=== PATIENT | female | born 1955 | race Hispanic/Latino ===

== ENCOUNTER → 2019-09-14 | Outpatient (CLI) | payer BC | END | disposition home or self-care (01) | LOC: RAH 10:54 | PROVIDERS: ATTEND Internal Medicine | DX: S82.141A Displaced bicondylar fracture of right tibia, initial encounter for closed fracture (principal); S80.01XA Contusion of right knee, initial encounter; M17.11 Unilateral primary osteoarthritis, right knee; X58.XXXA Exposure to other specified factors, initial encounter; Y93.89 Activity, other specified; Y92.89 Other specified places as the place of occurrence of the external cause; Y99.8 Other external cause status | CPT/HCPCS: 73721 ==

== ENCOUNTER 2022-03-05 04:07 | Emergency (ER) | payer BC ==
[~2022-03-05] VITALS: Ht 154.9 cm; Wt 65.3 kg
[2022-03-05 04:52] LABS: BASOPHILS % (AUTO) 0.3 % (0.0-5.0); EOSINOPHILS % (AUTO) 1.6 % (0.0-8.0); HEMATOCRIT 40.2 % (36-48); LYMPHOCYTES % (AUTO) 8.2 % (21.0-51.0); MEAN CORPUSCULAR HEMOGLOBIN 29.9 pg (27.0-33.0); MEAN CORPUSCULAR HGB CONC 33.1 g/dL (32.0-36.0); MEAN CORPUSCULAR VOLUME 90.3 fL (79-99); MONOCYTES % (AUTO) 3.1 % (3.0-13.0); NEUTROPHILS % (AUTO) 86.2 % (40.0-77.0); PLATELET COUNT (AUTO) 175 K/uL (130-400); RED BLOOD CELL COUNT(AUTO) 4.45 MIL/uL (4.00-5.50); RED CELL DISTRIBUTION WIDTH 13.4 % (11.0-15.5); WHITE BLOOD COUNT (AUTO) 6.8 K/uL (4.8-10.8)
[2022-03-05 05:02] LABS: APPEARANCE,URINE Clear (CLEAR); BILIRUBIN,URINE Negative (NEGATIVE); COLOR,URINE Yellow (YELLOW); CREATININE 0.7 mg/dL (0.5-1.5); GLUCOSE, URINE (UA) Negative (NEGATIVE); KETONES,URINE Negative (NEGATIVE); LEUKOCYTE ESTERASE ,URINE Moderate (NEGATIVE); NITRATE,URINE Negative (NEGATIVE); OCCULT BLOOD,URINE Negative (NEGATIVE); POTASSIUM 3.8 mmol/L (3.5-5.1); PROTEIN,URINE Negative (NEGATIVE); UROBILINOGEN,URINE 0.2 mg/dL (0.2-1.0)
[2022-03-05 05:06] LABS: ALBUMIN 3.5 g/dL (3.5-5.0); BILIRUBIN,TOTAL 0.8 mg/dL (0.2-1.0); TOTAL PROTEIN, SERUM 6.6 g/dL (6.0-8.3)
[2022-03-05 05:19] LABS: RBC,URINE 0-1 /HPF (0-1); WBC,URINE 0-1 /HPF (0-1)
[2022-03-05 05:20] LABS: BACTERIA,URINE Rare /HPF (None Seen)
[2022-03-05] MEDS ORDERED: KETOROLAC 15MG/ML VIAL (15MG/ML) IV ONE (07:30)
[2022-03-05] MEDS ORDERED: LEVOFLOXACIN 500 MG TABLET PO SCH (07:30)
[2022-03-05] MEDS ORDERED: HYDROCODONE/ACETAMINOPHEN 10/325 MG TAB PO ONE (07:30)
[2022-03-05] MEDS ORDERED: LEVO250T43 PO (08:36)
[2022-03-05] MEDS ORDERED: DICL50TA9 PO (08:36)
[2022-03-05 08:52] VITALS: BP 133/70
== END 2022-03-05 07:58 | disposition home or self-care (01) ==
LOC: EDH 04:07
DX: N39.0 Urinary tract infection, site not specified (principal); R50.9 Fever, unspecified; E11.9 Type 2 diabetes mellitus without complications; E78.00 Pure hypercholesterolemia, unspecified; I10 Essential (primary) hypertension; E03.9 Hypothyroidism, unspecified
CPT/HCPCS: 36415; 74176; 80053; 81001; 83605; 85025; 87040 ×2; 87088; 96374; 99284; J1885

== ENCOUNTER 2023-02-21 03:49 | Emergency (ER) | payer MEDICARE, BC ==
[~2023-02-21] VITALS: Ht 154.9 cm; Wt 61.2 kg
[~2023-02-21 03:49] MED LIST: DICL50TA9 PO; LEVO250T75 PO
[2023-02-21 04:24] LABS: BASOPHILS % (AUTO) 0.3 % (0.0-5.0); EOSINOPHILS % (AUTO) 2.5 % (0.0-8.0); HEMATOCRIT 41.4 % (36-48); LYMPHOCYTES % (AUTO) 8.8 % (21.0-51.0); MEAN CORPUSCULAR HEMOGLOBIN 30.4 pg (27.0-33.0); MEAN CORPUSCULAR HGB CONC 33.6 g/dL (32.0-36.0); MEAN CORPUSCULAR VOLUME 90.6 fL (79-99); MONOCYTES % (AUTO) 4.6 % (3.0-13.0); NEUTROPHILS % (AUTO) 83.3 % (40.0-77.0); PLATELET COUNT (AUTO) 180 K/uL (130-400); RED BLOOD CELL COUNT(AUTO) 4.57 MIL/uL (4.00-5.50); RED CELL DISTRIBUTION WIDTH 13.6 % (11.0-15.5); WHITE BLOOD COUNT (AUTO) 6.5 K/uL (4.8-10.8)
[2023-02-21] MEDS ORDERED: 0.9%NACL 1000ML 1,000 ML IV ONE (04:30)
[2023-02-21] MEDS ORDERED: ONDANSETRON 4MG INJ IVP ONE (04:30)
[2023-02-21 04:39] LABS: CREATININE 0.8 mg/dL (0.5-1.5); POTASSIUM 3.8 mmol/L (3.5-5.1)
[2023-02-21 04:43] LABS: ALBUMIN 3.9 g/dL (3.5-5.0); TOTAL PROTEIN, SERUM 6.8 g/dL (6.0-8.3)
[2023-02-21] MEDS ORDERED: METOCLOPRAMIDE 10 MG/2 ML VIAL ONE (04:45)
[2023-02-21] MEDS ORDERED: METOCLOPRAMIDE 10 MG TABLET PO ONE (05:00)
[2023-02-21] MEDS ORDERED: DiphenhydrAMINE HCL 50 MG/ML VIAL IV ONE (05:00)
[2023-02-21] MEDS ORDERED: METOCLOPRAMIDE 10 MG/2 ML VIAL IVP ONE (05:00)
[2023-02-21 05:16] VITALS: BP 166/83
[2023-02-21] MEDS ORDERED: IBUP-1493 PO (05:48)
== END 2023-02-21 05:59 | disposition home or self-care (01) ==
LOC: EDH 03:49
DX: G43.909 Migraine, unspecified, not intractable, without status migrainosus (principal); I10 Essential (primary) hypertension; E03.9 Hypothyroidism, unspecified; E11.9 Type 2 diabetes mellitus without complications; E78.00 Pure hypercholesterolemia, unspecified; Z90.49 Acquired absence of other specified parts of digestive tract; Z98.890 Other specified postprocedural states
CPT/HCPCS: 99284; 96374; 96375; 96361; 80053; 83690; 85025; 36415; J1200; J7030; J2405; J2765

== ENCOUNTER 2024-09-22 17:25 | Emergency (ER) | payer BC, MEDICARE, OTHER ==
[~2024-09-22] VITALS: Ht 172.7 cm; Wt 62.6 kg
[~2024-09-22 17:25] MED LIST changes: +IBUP-1493 PO
--- NOTE | 2024-09-22 17:39 | ERN ---
ED Note History of Present Illness Stated Complaint: FEVER Chief Complaint: Fever Time Seen by MD: 17:29 Time Seen by Midlevel: 17:33 Dictation: 69-year-old female with history of hypertension, diabetes, cholesterol coming in complaining of a headache, lower back pain, and suprapubic pain , cough, congestion for the last three days. States her granddaughter was diagnosed with the flu yesterday. Patient states she has been having fevers but denies any vomiting or diarrhea. Patient states when she gets like this he usually has a urinary tract infection. No other complaints at this time. Allergies: Coded Allergies: No Known Allergies (Unverified Allergy, Unknown, 07/21/19) Home Meds Active Scripts Ibuprofen (Motrin/Advil) 800 Mg Tab, 800 MG PO TID, #30 TAB Prov:RON GRAVES MD 02/21/23 Diclofenac Sodium (Diclofenac Sodium) 50 Mg Tablet.dr, 50 MG PO TIDP PRN for Pain, #20 TAB 0 Refills Prov:GORAN HOLDER MD 03/05/22 Levofloxacin (Levofloxacin) 250 Mg Tablet, 250 MG PO DAILY for 5 Days, #5 TAB 0 Refills Prov:GORAN HOLDER MD 03/05/22 Past Medical History Past Medical History: Diabetes-Type II, High Cholesterol, Hypertension, Hypothyroid Surgical History: Cholecystectomy Surgical History Other: KIDNEY STONES, COLONOSCOPY Family History: Negative Social History: Negative, Other Review of System Dictation Constitutional: Complaining of generalized body aches and fever Eyes: Negative for injury, pain,redness, and discharge ENT: Negative for injury,pain or swelling Cardiovascular: Negative for chest pain, palpitations, and edema Respiratory: Negative for shortness of breath, cough, and wheezing, Abdomen/GI: Negative for abdominal pain, nausea, vomiting, diarrhea, and constipation Back: Negative for injury and pain : Negative for injury, bleeding and discharge MS/Extremity: Negative for injury and deformity Skin: Negative for rash, and discoloration Neuro: Positive for headache, no weakness, no numbness, no tingling, and no seizure Psych: Negative for suicide ideation, homicidal ideation, and hallucinations Review of Systems: was completed Initial Vital Sign VS Vital Signs Date Time Temp Pulse Resp B/P (MAP) Pulse Ox O2 Delivery O2 Flow Rate FiO2 09/22/24 17:26 101.8 107 18 173/82 98 11/28/24 17:47 Room Air* 0 21 Physical Exam Dictation General: awake, alert, NAD Head/Face: Normocephalic, atraumatic Eyes: PERRL, EOMI, vision at baseline ENT: oral cavity clear, TMs clear, no signs of infection Neck: Trachea midline, supple, no nuchal rigidity Cardiovascular: RRR, normal S1/S2, No MRGs, no JVD Respiratory: CTAB, no respiratory distress, No rales or wheezes Abdomen: Soft, non-tender, non-distended, normal bowel sounds, no guarding or rebound. Skin: Warm, dry, normal turgor, no rash MS/Extremity: Pulses equal, no cyanosis, neurovascular intact, FROM Neuro: COAx4, GCS 15, strength 5/5, CN 2-12 intact, normal cerebellar exam, normal gait, Psych: Normal behavior, mood, and affect normal Results (Laboratory/Radiology) Laboratory/Radiology Laboratory Tests Test 09/22/24 17:37 09/22/24 17:45 09/22/24 17:54 Urine Color LIGHT-YELLOW (YELLOW) Urine Appearance CLEAR (CLEAR) Urine pH 7.0 (5.0-8.0) Urine Specific [place] 1.016 (1.001-1.031) Urine Protein NEGATIVE mg/dL (NEGATIVE) Urine Glucose (UA) 500 mg/dL (NEGATIVE) H Urine Ketones 5 mg/dL (NEGATIVE) H Urine Occult Blood NEGATIVE (NEGATIVE) Urine Nitrate NEGATIVE (NEGATIVE) Urine Bilirubin NEGATIVE mg/dL (NEGATIVE) Urine Urobilinogen 0.2 mg/dL (0.2-1.0) Urine Leukocyte Esterase 500 Elina/uL (NEGATIVE) H Urine RBC 2-5 /HPF (0-1) H Urine WBC 11-25 /HPF (0-1) H Urine Squamous Epithelial Cells RARE /HPF (0-2) Urine Bacteria None /HPF (None Seen) White Blood Count 4.4 K/uL (4.8-10.8) L Red Blood Count 4.51 MIL/uL (4.00-5.50) Hemoglobin 13.3 g/dL (12.0-16.0) Hematocrit 41.9 % (36-48) Mean Corpuscular Volume 92.9 fL (79-99) Mean Corpuscular Hemoglobin 29.5 pg (27.0-33.0) Mean Corpuscular Hemoglobin Concent 31.7 g/dL (32.0-36.0) L Red Cell Distribution Width 13.2 % (11.0-15.5) Platelet Count 169 K/uL (130-400) Mean Platelet Volume 10.6 fL (7.5-10.5) H Immature Granulocyte % (Auto) 0.5 % (0-1) Neutrophils (%) (Auto) 65.9 % (40.0-77.0) Lymphocytes (%) (Auto) 18.5 % (21.0-51.0) L Monocytes (%) (Auto) 11.2 % (3.0-13.0) Eosinophils (%) (Auto) 3.2 % (0.0-8.0) Basophils (%) (Auto) 0.7 % (0.0-5.0) Neutrophils # (Auto) 2.9 K/uL (1.8-7.7) Lymphocytes # (Auto) 0.8 K/uL (1.0-4.8) L Monocytes # (Auto) 0.5 K/uL (0.1-1.0) Eosinophils # (Auto) 0.14 K/uL (0.00-0.70) Basophils # (Auto) 0.03 K/uL (0.00-0.20) Absolute Immature Granulocyte (auto 0.02 K/uL (0-1) Nucleated Red Blood Cells 0.0 % (0.0-0.19) Sodium Level 137 mmol/L (136-145) Potassium Level 3.8 mmol/L (3.5-5.1) Chloride Level 101 mmol/L (101-111) Carbon Dioxide Level 30 mmol/L (21-32) Blood Urea Nitrogen 19 mg/dL (7-18) H Creatinine 0.9 mg/dL (0.5-1.0) Glomerular Filtration Rate Calc 70 mL/min (>90) Random Glucose 206 mg/dL (70-105) H Lactic Acid Level 2.3 mmol/L (0.8-2.5) Total Calcium 8.9 mg/dL (8.5-10.1) Total Creatine Kinase 53 U/L (21-232) Troponin I High Sensitivity 4 ng/L (4-50) Influenza Type A Antigen Positive For Type A Influenza Type B Antigen Negative For Type B SARS-CoV-2, RNA, NAAT NEGATIVE SARS CoV-2 Group A Streptococcus Rapid negative (NEGATIVE) Labs Reviewed?: Yes ED Course ED Course Orders Procedure Category Date Status Time Cbc With Differential LAB 09/22/24 Complete 17:33 Blood Cult SYLWIA 09/22/24 Logged 17:33 Urinalysis Profile LAB 09/22/24 Complete 17:33 Culture Urine SYLWIA 09/22/24 In Process 17:33 0.9%Nacl 1000ml (Ns PHA 09/22/24 In Process 1000ml) 18:00 Creatine Kinase, Total LAB 09/22/24 Complete 17:33 Troponin I High LAB 09/22/24 Complete Sensitivity 17:33 Lactic Acid LAB 09/22/24 Complete 17:33 Basic Metabolic Panel LAB 09/22/24 Complete 17:33 Acetaminophen 325 Tab PHA 09/22/24 Complete (Tylenol 325mg Tab 17:33 Ceftriaxone 1g Vial PHA 09/22/24 Complete (Rocephine 1g Inj) 17:33 Covid Rna Naat LAB 09/22/24 Complete 17:42 Influenza Type A & B, LAB 09/22/24 Complete Rapid 17:42 Rapid (Group A Strep) LAB 09/22/24 Complete 17:42 Current Medications Medications (Trade) Dose Ordered Sig/Juan Antoino Route PRN Reason Start Time Stop Time Status Last Admin Dose Admin Acetaminophen (TYLenol 325MG TAB) 650 mg ONCE STAT PO 09/22/24 17:33 09/22/24 17:36 DC 09/22/24 17:57 Ceftriaxone Sodium (ROCEphine 1G INJ) 1 gm ONCE STAT IVPB 09/22/24 17:33 09/22/24 17:36 DC 09/22/24 17:56 Sodium Chloride 1,890 ml @ 630 mls/hr ONCE ONCE IV 09/22/24 18:00 09/22/24 20:59 09/22/24 17:56 Vital Signs Date Time Temp Pulse Resp B/P (MAP) Pulse Ox O2 Delivery O2 Flow Rate FiO2 09/22/24 17:57 101.1 09/22/24 17:47 101.1 102 20 159/78 96 Room Air* 0 21 09/22/24 17:26 101.8 107 18 173/82 98 Medical Decision Making MDM MDM: 69-year-old female with history of hypertension, diabetes, cholesterol coming in complaining of a headache, lower back pain, and suprapubic pain , cough, congestion for the last three days. States her granddaughter was diagnosed with the flu yesterday. Patient states she has been having fevers but denies any vomiting or diarrhea. Patient states when she gets like this he usually has a urinary tract infection. No other complaints at this time.CBC shows leukocytopenia, no anemia, no thrombocytopenia. Chemistry shows no electrolyte abnormality. Hyperglycemia of 206. Lactic level 2.3. Troponin negative. UA shows evidence of a mild urinary tract infection, Rocephin given in the emergency room. Serology positive for influenza A. Patient received fluids and antibiotics here in the emergency room. We will prescribe patient Tamiflu to take at home. Discussed with patient on findings, educated to follow up with her PCP in 1-2 days and to return to the ER if symptoms worsen. Patient verbalized understanding, answered all questions. Differential diagnosis: Viral syndrome, influenza, COVID, urinary tract infection, pyelonephritis Rationale: Tests considered and ordered secondary to shared decision making include: Previous outside records reviewed: Old ER visits. Risk of complication and/or morbidity or mortality of patient management: None Medications-Per medication reconciliation Need for hospitalization: Patient does not meet criteria for hospitalization. Need for emergency major/minor surgery: No There are no social concerns with this patient. Prescription drug management Prescriptions will include symptomatic care Patient's prior external medical records from other ER visits were reviewed by me as indicated. Prior testing and results from previous visits were reviewed. Prior tests were taken into account with medical decision making and resource utilization, independent historian/historians were used to obtain complete [facility] history. I independently interpreted the test that were performed, results were reviewed by me and considered findings on radiology if ordered. Medical management and examination interpretation discussions were had by me with other qualified healthcare professionals as indicated for the patient's care. DX & DISP Disposition: Discharge Departure Impression: Primary Impression: Acute UTI Additional Impression: Influenza A Condition: Stable Scripts Oseltamivir Phosphate (Tamiflu) 75 Mg Cap 75 MG PO BID for 5 Days, #10 CAP Prov: KARYNA PEDERSEN SPARES SCHEDULER 09/22/24 Additional Instructions: You can take Tylenol or Motrin for fever control and headache. Increase fluid intake. Pull up with her primary doctor in 1-2 days. Return to the ER if symptoms worsen. Referrals: MUKUL GREEN MD (PCP) Time of Disposition: 19:16 I have reviewed the case, and I agree with, Diagnosis and Plan KARYNA PEDERSEN NP Sep 22, 2024 17:39
[2024-09-22 17:50] LABS: APPEARANCE,URINE CLEAR (CLEAR); BILIRUBIN,URINE NEGATIVE (NEGATIVE); COLOR,URINE LIGHT-YELLOW (YELLOW); GLUCOSE, URINE (UA) 500 mg/dL (NEGATIVE); KETONES,URINE 5 mg/dL (NEGATIVE); LEUKOCYTE ESTERASE ,URINE 500 Leu/uL (NEGATIVE); NITRATE,URINE NEGATIVE (NEGATIVE); OCCULT BLOOD,URINE NEGATIVE (NEGATIVE); PROTEIN,URINE NEGATIVE (NEGATIVE); UROBILINOGEN,URINE 0.2 mg/dL (0.2-1.0)
[2024-09-22 17:53] LABS: ADD UA MICROSCOPIC YES
[2024-09-22 17:55] LABS: SQUAMOUS EPITHELIAL CELL,UR RARE /HPF (0-2)
[2024-09-22] MEDS: [UNRECOGNIZED DRUG - OTHER] IV ONE (17:56)
[2024-09-22] MEDS: cefTRIAXone 1G VIAL IVPB STA (17:56)
[2024-09-22] MEDS: acetaMINOPHEN 325 MG TAB PO STA (17:57)
[2024-09-22 17:59] LABS: BASOPHILS # (AUTO) 0.03 K/uL (0.00-0.20); BASOPHILS % (AUTO) 0.7 % (0.0-5.0); EOSINOPHILS # (AUTO) 0.14 K/uL (0.00-0.70); EOSINOPHILS % (AUTO) 3.2 % (0.0-8.0); HEMATOCRIT 41.9 % (36-48); IMMATURE GRANULOCYTE ABSOLUTE 0.02 K/uL (0-1); LYMPHOCYTES # (AUTO) 0.8 K/uL (1.0-4.8); LYMPHOCYTES % (AUTO) 18.5 % (21.0-51.0); MEAN CORPUSCULAR HEMOGLOBIN 29.5 pg (27.0-33.0); MEAN CORPUSCULAR HGB CONC 31.7 g/dL (32.0-36.0); MEAN CORPUSCULAR VOLUME 92.9 fL (79-99); MONOCYTES # (AUTO) 0.5 K/uL (0.1-1.0); MONOCYTES % (AUTO) 11.2 % (3.0-13.0); NEUTROPHILS # (AUTO) 2.9 K/uL (1.8-7.7); NEUTROPHILS % (AUTO) 65.9 % (40.0-77.0); PLATELET COUNT (AUTO) 169 K/uL (130-400); RED BLOOD CELL COUNT(AUTO) 4.51 MIL/uL (4.00-5.50); RED CELL DISTRIBUTION WIDTH 13.2 % (11.0-15.5); WHITE BLOOD COUNT (AUTO) 4.4 K/uL (4.8-10.8)
[2024-09-22 18:17] LABS: CREATININE 0.9 mg/dL (0.5-1.0); POTASSIUM 3.8 mmol/L (3.5-5.1)
[2024-09-22 18:34] LABS: RAPID GROUP A STREP negative (NEGATIVE)
[2024-09-22 18:40] LABS: SARS-CoV-2, RNA, NAAT NEGATIVE SARS CoV-2 (NEGATIVE)
[2024-09-22 18:44] LABS: INFLUENZA TYPE B Negative For Type B (NEGATIVE)
[2024-09-22 18:47] LABS: INFLUENZA TYPE A Positive For Type A (NEGATIVE)
[2024-09-22 18:59] VITALS: TEMP 98.7
[2024-09-22] MEDS ORDERED: OSEL75 PO (19:17)
[2024-09-22 19:24] VITALS: BP 140/65; PULSE 98; RESP 18; TEMP 98.5; O2SAT 100
== END 2024-09-22 19:36 | disposition home or self-care (01) ==
LOC: EDH 17:25
DX: N39.0 Urinary tract infection, site not specified (principal); J10.1 Influenza due to other identified influenza virus with other respiratory manifestations; E03.9 Hypothyroidism, unspecified; E11.9 Type 2 diabetes mellitus without complications; E78.00 Pure hypercholesterolemia, unspecified; I10 Essential (primary) hypertension; Z20.822 Contact with and (suspected) exposure to COVID-19; Z79.1 Long term (current) use of non-steroidal anti-inflammatories (NSAID); Z90.49 Acquired absence of other specified parts of digestive tract
CPT/HCPCS: 99284; 96365; 87635; 82550; 84484; 80048; 85025; 87040 ×2; 87086; 87880; 87804 ×2; 83605; 81001; 36415; J7030; J0696

== ENCOUNTER → 2024-11-07 | Outpatient (CLI) | payer OTHER ==
[~2024-11-07] MED LIST changes: +IOHEXOL-350 75 ML VIAL IV ONE; +OSEL75 PO
--- NOTE | 2024-11-07 11:05 | HMCIMG ---
CT ABDOMEN/PELVIS W/CONTRAST HISTORY: Lower abdominal pain COMPARISON: 03/05/2022 TECHNIQUE: Multiple sequential axial images of the abdomen and pelvis were obtained from the dome of the diaphragm through symphysis pubis. Patient was given 75 cc of Omnipaque through intravenous route. Oral contrast was given. FINDINGS: No pleural effusion is seen bilaterally. There is no evidence of parenchymal disease or pulmonary nodule of the visualized lower lungs. Degenerative changes of the thoracolumbar spine are present. The heart is not enlarged. Postcholecystectomy changes are seen. No bowel obstruction is seen. There are abdominal varices surrounding the spleen. The liver, spleen, adrenal glands and pancreas are unremarkable. There is no evidence of hydronephrosis bilaterally. No evidence of renal stone is seen. There is right renal cyst measuring 2.2 cm. Fecal material is seen in the colon. There are normal size retroperitoneal and mesenteric lymph nodes. No ascites is seen. Atherosclerotic changes are present. Uterus is not seen. Pelvic sidewalls are symmetric bilaterally. Bladder is poorly distended. IMPRESSION: 1. No bowel obstruction is seen. No ascites is seen. CT was performed with one or more following dose reduction techniques: automated exposure control, adjustment of the mA and kv according to patient's size, or use of a iterative reconstruction technique.
== END | disposition home or self-care (01) ==
LOC: RAH 08:57
PROVIDERS: ATTEND Internal Medicine
DX: N28.1 Cyst of kidney, acquired (principal); N32.89 Other specified disorders of bladder; M47.815 Spondylosis without myelopathy or radiculopathy, thoracolumbar region; R10.32 Left lower quadrant pain; Z90.49 Acquired absence of other specified parts of digestive tract
CPT/HCPCS: 74177; Q9967

== ENCOUNTER 2024-12-30 10:50 | Emergency (ER) | payer OTHER ==
[~2024-12-30] VITALS: Ht 154.9 cm; Wt 63.5 kg
[~2024-12-30 10:50] MED LIST changes: -IOHEXOL-350 75 ML VIAL IV ONE
--- NOTE | 2024-12-30 11:27 | ERN ---
General Chief Complaint: Laceration/Avulsion Stated Complaint: S/P FALL MOUTH LACERATION Time Seen by MD: 10:54 Source: patient History of Present Illness Initial Comments Patient is a 69-year-old female coming in to be evaluated after she states he wa s walking tripped and fell down hitting herself in the mouth. She states that she has a pain in her mouth secondary to fall. Allergies: Coded Allergies: No Known Allergies (Unverified Allergy, Unknown, 07/21/19) Home Meds Active Scripts Oseltamivir Phosphate (Tamiflu) 75 Mg Cap, 75 MG PO BID for 5 Days, #10 CAP Prov:KARYNA PEDERSEN NP 09/22/24 Ibuprofen (Motrin/Advil) 800 Mg Tab, 800 MG PO TID, #30 TAB Prov:RON GRAVES MD 02/21/23 Diclofenac Sodium (Diclofenac Sodium) 50 Mg Tablet.dr, 50 MG PO TIDP PRN for Pain, #20 TAB 0 Refills Prov:GORAN HOLDER MD 03/05/22 Levofloxacin (Levofloxacin) 250 Mg Tablet, 250 MG PO DAILY for 5 Days, #5 TAB 0 Refills Prov:GORAN HOLDER MD 03/05/22 Past Medical History Past Medical History: Diabetes-Type II, High Cholesterol, Heart Disease, Hypothyroid Past Surgical History: None Surgical History Other: KIDNEY STONES, COLONOSCOPY Family History Family History: Negative Social History Social History: Negative, Other ROS Dictation CONSTITUTIONAL: No chills, no fever, no weakness, no diaphoresis, no malaise. HEAD/FACE: No signs of trauma. EENT: No eye pain, no blurred vision, no tearing, no double vision, no ear pain, no ear discharge, no nose pain, no nasal congestion, no throat pain, no throat swelling, no mouth pain. RESPIRATORY: No cough, no orthopnea, no SOB, no stridor, no wheezing. CARDIOVASCULAR: No chest pain, no edema, no palpitations, no syncope. GASTROINTESTINAL/ABDOMINAL: No abdominal pain, no constipation, no diarrhea, no nausea, no vomiting. GENITOURINARY: No abnormal discharge, no dysuria, no frequent urination, no hematuria. No complaints of pain in the genitals. MUSCULOSKELETAL: No back pain, no gout, no joint pain, no joint swelling, no muscle pain, no muscle stiffness, no neck pain. INTEGUMENTARY: No change in color, no change in hair/nails, no dryness, no lesion, no lumps, no rash. NEUROLOGICAL/PSYCH: No anxiety, not depressed, no emotional problem, no headache, no numbness, no pre-existing deficit, no history of seizures, no tremors, no weakness. HEMATOLOGIC/LYMPHATIC: Not anemic, no history of blood clots, no apparent bleed ing, no bruising, glands not swollen. All Systems Negative, Except as Noted. Physical Exam Physical Exam Dictation VITAL SIGNS: Reviewed. GENERAL APPEARANCE: Alert, oriented x3, no acute distress, obese. HEAD AND FACE: Non-traumatic. EYES: PERRL, pink conjunctivas, eyelid no trauma, anterior chamber clear. EARS: Pinnas intact and no signs of trauma or erythema. Ear canals clear and no discharge. TMs no erythema. NOSE: No discharge, no bleeding. OROPHARYNX: Mouth normal, teeth no caries, tongue pink. Pharynx clear, no erythema. Tonsils no exudates, no abscesses noted. Mucous membrane moist. NECK: Supple, non-tender, no thyromegaly, no masses, no JVD, no bruits. BREAST: Deferred. CHEST: No tenderness, no crepitus, no paradoxical movement, no retractions. LUNGS: Clear, well-ventilated, symmetric, no rales, no wheezing, no rhonchi, no stridor, good breath sounds bilaterally. HEART: Regular rate, regular rhythm, no murmur, no gallops. VASCULAR: No peripheral edema. ABDOMEN: Soft, positive bowel sounds, nondistended, no guarding, nontender, no rebound, no masses no hepatomegaly, no splenomegaly, no Motley's sign, no hernias. RECTAL: Deferred. GENITAL: Deferred. NEUROLOGICAL: Normal speech, gross motor function intact, gross sensory function intact. MUSCULOSKELETAL: Neck nontender, full range of motion, back nontender, full range of motion. EXTREMITIES: Nontender, full range of motion. SKIN: Color pink, dry, no turgor, no rash, no lacerations, no abrasions, no contusions. LYMPHATICS: Deferred. Results Laboratory and Microbiology Labs Reviewed?: Yes MDM MDM: Differential diagnosis: Fall, mechanical fall, trip and fall, lip laceration Patient is a 69-year-old female coming in after she tripped and fell down hitting herself in the mouth. She states he did not lose consciousness and on physical exam no tenderness anywhere except the laceration or mouth. Multiple prosthetic teeth were removed once lidocaine was applied good anesthesia has been achieved. Laceration measuring 3 cm through and through was repaired. Patient tolerated procedure well. We will be discharged in stable condition I did advised her appropriate follow up with dentist and her PCP. ED Course Orders Procedure Category Date Status Time Lidocaine Hcl 1% 20ml PHA 12/30/24 Complete Vial (Lidocaine Hc 11:11 Current Medications Medications (Trade) Dose Ordered Sig/Juan Antonio Route PRN Reason Start Time Stop Time Status Last Admin Dose Admin Lidocaine HCl (Lidocaine HCl 1% 20ml Vial) 20 ml STK-MED ONCE .ROUTE 12/30/24 11:11 12/30/24 11:11 DC 12/30/24 11:33 Vital Signs Date Time Temp Pulse Resp B/P (MAP) Pulse Ox O2 Delivery O2 Flow Rate FiO2 12/30/24 10:56 99.0 78 18 144/83 99 Room Air 0 Laceration/Wound Repair Laceration/Wound Repair : Wound Location: face Wound Length (cm): 3 Wound's Depth, Shape: superficial, contused tissue Wound Explored: foreign body removed Irrigated w/ Saline (ccs): 100 Betadine Prep?: Yes Anesthesia: 1% Lidocaine Volume Anesthetic (ccs): 5 Wound Repaired With: sutures Suture Size/Type: 5:0 Number of Sutures: 6 Layer Closure?: Yes Deep Layer Suture Size/Type: 4:0, chromic Number Deep Layer Sutures: 8 Sterile Dressing Applied?: Yes DX & DISP Disposition: Discharge Departure Impression: Primary Impression: Fall Additional Impression: Lip laceration Condition: Stable Scripts Cephalexin Monohydrate (Keflex) 500 Mg Cap 1 CAP PO TID for 10 Days, #30 CAP 0 Refills Prov: KIKE BOCANEGRA MD 12/30/24 Additional Instructions: FOLLOW-UP WITH PRIMARY CARE PROVIDER IN 1 TO 2 DAYS. TAKE MEDICATIONS DIRECTED HERE IN THE EMERGENCY ROOM. OKAY TO CONTINUE HOME MEDICATIONS UNLESS OTHERWISE DISCUSSED DURING YOUR VISIT IN THE EMERGENCY ROOM TODAY. RETURN TO YOUR NEAREST EMERGENCY ROOM IF SYMPTOMS WORSEN OR IF THERE IS NO IMPROVEMENT. CALL 911 IF YOU NEED IMMEDIATE ASSISTANCE. TAKE TYLENOL [id number] NEEDED AND IF NO CONTRAINDICATIONS ARE PRESENT. INCREASE ORAL HYDRATION. A WOUND CULTURE OR URINE CULTURE WAS ORDERED HERE IN THE EMERGENCY ROOM DEPARTMENT PLEASE FOLLOW-UP WITH PRIMARY CARE PROVIDER AND ADVISE THEM TO GET REPEAT PORTS FROM OUR FACILITY. IF YOU HAD ANY VIGNESH WRAP/SPLINTS THAT WERE APPLIED HERE, PLEASE DO NOT REMOVE THEM UNTIL YOU SEE YOUR PRIMARY CARE OR SPECIALTY. Referrals: Referrals: MUKUL GREEN MD (PCP) Time of Disposition: 12:12 KIKE BOCANEGRA MD Dec 30, 2024 11:27
[2024-12-30] MEDS: LIDOCAINE HCL 1% 20 ML VIAL ONE (11:33)
[2024-12-30] MEDS ORDERED: CEPH500B PO (12:28)
[2024-12-30 12:38] VITALS: BP 141/79; PULSE 78; RESP 18; TEMP 98.7; O2SAT 98
== END 2024-12-30 13:20 | disposition home or self-care (01) ==
LOC: EDH 10:50
DX: S01.511A Laceration without foreign body of lip, initial encounter (principal); E11.9 Type 2 diabetes mellitus without complications; E03.9 Hypothyroidism, unspecified; E78.00 Pure hypercholesterolemia, unspecified; Z79.1 Long term (current) use of non-steroidal anti-inflammatories (NSAID); Z79.899 Other long term (current) drug therapy; W01.0XXA Fall on same level from slipping, tripping and stumbling without subsequent striking against object, initial encounter; Y93.89 Activity, other specified; Y92.89 Other specified places as the place of occurrence of the external cause; Y99.8 Other external cause status
CPT/HCPCS: 12011; 12013; 12052; 99283; 99284

== ENCOUNTER 2025-01-06 11:31 | Emergency (ER) | payer OTHER ==
[~2025-01-06] VITALS: Ht 154.9 cm; Wt 60.8 kg
[~2025-01-06 11:31] MED LIST changes: +CEPH500B PO
--- NOTE | 2025-01-06 12:00 | ERN ---
General Chief Complaint: Suture/Staple Removal Stated Complaint: SUTURE REMOVAL FROM UPPER LIP Time Seen by MD: 11:33 History of Present Illness Initial Comments 69-year-old female here for suture removal. Patient had fallen seven days ago, has a laceration on the upper leg. It is well healing. Sutures intact. No signs of infection. Allergies: Coded Allergies: No Known Allergies (Unverified Allergy, Unknown, 07/21/19) Home Meds Active Scripts Cephalexin Monohydrate (Keflex) 500 Mg Cap, 1 CAP PO TID for 10 Days, #30 CAP 0 Refills Prov:KIKE BOCANEGRA MD 12/30/24 Oseltamivir Phosphate (Tamiflu) 75 Mg Cap, 75 MG PO BID for 5 Days, #10 CAP Prov:KARYNA PEDERSEN NP 09/22/24 Ibuprofen (Motrin/Advil) 800 Mg Tab, 800 MG PO TID, #30 TAB Prov:RON GRAVES MD 02/21/23 Diclofenac Sodium (Diclofenac Sodium) 50 Mg Tablet.dr, 50 MG PO TIDP PRN for Pain, #20 TAB 0 Refills Prov:GORAN HOLDER MD 03/05/22 Levofloxacin (Levofloxacin) 250 Mg Tablet, 250 MG PO DAILY for 5 Days, #5 TAB 0 Refills Prov:GORAN HOLDER MD 03/05/22 Past Medical History Past Medical History: Diabetes-Type II, High Cholesterol, Heart Disease, Hypothyroid Past Surgical History: None Surgical History Other: KIDNEY STONES, COLONOSCOPY Family History Family History: Negative Social History Social History: Negative, Other ROS Dictation CONSTITUTIONAL: No chills, no fever, no weakness, no diaphoresis, no malaise. HEAD/FACE: No signs of trauma. EENT: No eye pain, no blurred vision, no tearing, no double vision, no ear pain, no ear discharge, no nose pain, no nasal congestion, no throat pain, no throat swelling, no mouth pain. RESPIRATORY: No cough, no orthopnea, no SOB, no stridor, no wheezing. CARDIOVASCULAR: No chest pain, no edema, no palpitations, no syncope. GASTROINTESTINAL/ABDOMINAL: No abdominal pain, no constipation, no diarrhea, no nausea, no vomiting. GENITOURINARY: No abnormal discharge, no dysuria, no frequent urination, no hematuria. No complaints of pain in the genitals. MUSCULOSKELETAL: No back pain, no gout, no joint pain, no joint swelling, no muscle pain, no muscle stiffness, no neck pain. INTEGUMENTARY: No change in color, no change in hair/nails, no dryness, no lesion, no lumps, no rash. NEUROLOGICAL/PSYCH: No anxiety, not depressed, no emotional problem, no headache, no numbness, no pre-existing deficit, no history of seizures, no tremors, no weakness. HEMATOLOGIC/LYMPHATIC: Not anemic, no history of blood clots, no apparent bleeding, no bruising, glands not swollen. All Systems Negative, Except as Noted. Physical Exam Physical Exam Dictation VITAL SIGNS: Reviewed. GENERAL APPEARANCE: Alert, oriented x3, no acute distress. HEAD AND FACE: Well healing upper lip wound EYES: PERRL, pink conjunctivas, eyelid no trauma, anterior chamber clear. EARS: Pinnas intact and no signs of trauma or erythema. Ear canals clear and no discharge. TMs no erythema. NOSE: No discharge, no bleeding. OROPHARYNX: Mouth normal, teeth no caries, tongue pink. Pharynx clear, no erythema. Tonsils no exudates, no abscesses noted. Mucous membrane moist. NECK: Supple, non-tender, no thyromegaly, no masses, no JVD, no bruits. BREAST: Deferred. CHEST: No tenderness, no crepitus, no paradoxical movement, no retractions. LUNGS: Clear, well-ventilated, symmetric, no rales, no wheezing, no rhonchi, no stridor, good breath sounds bilaterally. HEART: Regular rate, regular rhythm, no murmur, no gallops. VASCULAR: No peripheral edema. ABDOMEN: Soft, positive bowel sounds, nondistended, no guarding, nontender, no rebound, no masses no hepatomegaly, no splenomegaly, no Motley's sign, no dorinda ias. RECTAL: Deferred. GENITAL: Deferred. NEUROLOGICAL: Normal speech, gross motor function intact, gross sensory function intact. MUSCULOSKELETAL: Neck nontender, full range of motion, back nontender, full range of motion. EXTREMITIES: Nontender, full range of motion. SKIN: Color pink, dry, no turgor, no rash, no lacerations, no abrasions, no contusions. LYMPHATICS: Deferred. MDM CC: Suture removal Historian: Patient Comorbidities: Diabetes, dyslipidemia, CAD, hypothyroid Limitations by social determinants of health: None Vital signs stable External chart review: I reviewed Dr. Bocanegra's note from seven days ago. He had six sutures placed on the superficial labs, eight deep sutures. Six superficial sutures were removed without complication by me. We will DC ED Course Vital Signs Date Time Temp Pulse Resp B/P (MAP) Pulse Ox O2 Delivery O2 Flow Rate FiO2 01/06/25 11:32 99.0 73 16 142/70 99 Room Air 0 DX & DISP Disposition: Discharge Departure Impression: Primary Impression: Visit for suture removal Condition: Stable Additional Instructions: The area may bleed a bit after suture removal. This is normal. You can apply gauze to stop the bleeding. Keep the wound clean with soap and water. Please return to the emergency department if you have any concerns. Referrals: MUKUL GREEN MD (PCP) GLADIS GUERRERO DO Jan 06, 2025 12:00
[2025-01-06 12:03] VITALS: BP 144/70; PULSE 69; RESP 14; TEMP 98; O2SAT 100
== END 2025-01-06 12:10 | disposition home or self-care (01) ==
LOC: EDH 11:31
DX: S01.511D Laceration without foreign body of lip, subsequent encounter (principal); E03.9 Hypothyroidism, unspecified; E11.9 Type 2 diabetes mellitus without complications; E78.00 Pure hypercholesterolemia, unspecified; I25.10 Atherosclerotic heart disease of native coronary artery without angina pectoris; Z79.1 Long term (current) use of non-steroidal anti-inflammatories (NSAID); X58.XXXD Exposure to other specified factors, subsequent encounter
CPT/HCPCS: 99281

== ENCOUNTER → 2025-06-23 | Outpatient (CLI) | payer OTHER ==
[~2025-06-23] MED LIST changes: +IOHEXOL-350 75 ML VIAL IV ONE
--- NOTE | 2025-06-23 19:31 | HMCIMG ---
EXAM: CT Abdomen and Pelvis with and without IV contrast CLINICAL HISTORY: Chronic idiopathic constipation TECHNIQUE: Axial computed tomography images of the abdomen and pelvis with and without intravenous contrast. CONTRAST: with and without intravenous contrast. COMPARISON: Study dated 11/07/2024. FINDINGS: LUNG BASES: 7 x 5.5 mm simple cyst in the posterobasal segment of the left lower lobe. No pleural effusions are seen. LIVER: Unremarkable. GALLBLADDER AND BILE DUCTS: Post-cholecystectomy status. No biliary ductal dilatation is evident. PANCREAS: Unremarkable. SPLEEN: Few calcified granulomas, the largest of size 3 mm. ADRENAL GLANDS: Unremarkable. KIDNEYS, URETERS, AND BLADDER: The kidneys appear within normal limits.No urinary calculi are seen. A few simple cortical cysts in the right kidney, the largest of size 2.5 x 2.4 cm in the lower pole. Mild hydronephrosis in the right kidney. There is no hydronephrosis or hydroureter in the left kidney. STOMACH AND BOWEL: Unremarkable appearance of the stomach and bowel. No evidence of bowel obstruction. No evidence suggesting enteritis or colitis. There is a 2 cm defect in the anterior abdominal wall in the infraumbilical region with herniation of the omentum. No evidence of bowel loop herniation seen. Few diverticuli along the sigmoid colon. APPENDIX: No evidence of acute appendicitis on CT examination. PERITONEUM: No free fluid. No free air. LYMPH NODES: No lymphadenopathy is evident. REPRODUCTIVE: The uterus is not visualized, likely postoperative. VASCULATURE: No evidence of abdominal aortic aneurysm. Atherosclerotic changes in the aorta and iliac arteries. BONES: No aggressive appearing osseous lesion. No acute osseous pathology evident. Moderate degenerative changes in the spine. Grade I retrolisthesis of the L5 over the S1 vertebra. Central wedge compression of the L1 vertebra with 20-30% loss of height. IMPRESSION: 1. No acute intraabdominal or pelvic pathology. 2. Mild right hydronephrosis. 3. 2 cm infraumbilical ventral hernia containing omentum. 4. L1 vertebral compression fracture with 20-30% height loss. /[place]ills
== END | disposition home or self-care (01) ==
LOC: RAH 08:22
PROVIDERS: ATTEND Internal Medicine
DX: K43.9 Ventral hernia without obstruction or gangrene (principal); D18.09 Hemangioma of other sites; K59.04 Chronic idiopathic constipation; N28.1 Cyst of kidney, acquired; R10.30 Lower abdominal pain, unspecified; N13.30 Unspecified hydronephrosis; M48.56XA Collapsed vertebra, not elsewhere classified, lumbar region, initial encounter for fracture; K57.90 Diverticulosis of intestine, part unspecified, without perforation or abscess without bleeding; I70.0 Atherosclerosis of aorta; M47.817 Spondylosis without myelopathy or radiculopathy, lumbosacral region; M43.17 Spondylolisthesis, lumbosacral region; Z90.49 Acquired absence of other specified parts of digestive tract
CPT/HCPCS: 74178; Q9967